=== PATIENT | male | born 1970 | race Caucasian/White ===

== ENCOUNTER 2017-08-01 00:23 | Emergency (ER) | payer SELFPAY ==
[2017-08-01] MEDS ORDERED: Ondansetron HCl/PF 4 MG/2 ML Vial ONE (00:49)
[2017-08-01 00:54] LABS: Hemoglobin 15.7 g/dL (14.0-18.0); Mean Corpuscular HGB CONC 34.3 g/dL (32.0-36.0); Mean Corpuscular Hemoglobin 30.7 pg (27.0-31.0); Mean Corpuscular Volume 89.7 fl (80.0-94.0); Mean Platelet Volume 8.8 fL (7.4-10.4); Platelet Count 225 thou/uL (130-400); RBC Distribution Width 11.5 % (11.5-14.5); Red Blood Cell (RBC) Count 5.11 mill/uL (4.70-6.10); White Blood Cell (WBC) Count 19.1 thou/uL (4.8-10.8)
[2017-08-01] MEDS ORDERED: Mag-Al 1200 mg/1200 mg/30 ML UDCUP ONE (01:14)
[2017-08-01] MEDS ORDERED: Lidocaine Viscous Sol 2% 15 ml UD Cup ONE (01:14)
[2017-08-01 01:16] LABS: Band 5 % (5-11); Lymphocytes 11 % (21-51); MDiff Complete? YES; Monocytes 4 % (0-10); Neutrophil 79 % (42-75); Reactive Lymphocytes 1 % (0-10)
[2017-08-01 01:24] LABS: ALT (SGPT) 19 U/L (8-55); AST (SGOT) 14 U/L (5-34); Albumin 4.2 g/dL (3.5-5.0); Alkaline Phosphatase 86 U/L (40-150); Anion Gap 18 mmol/L (10-20); BUN (Urea Nitrogen) 14 mg/dL (8.9-20.6); Bilirubin, Total 1.2 mg/dL (0.2-1.2); Calc. Creatinine Clearance 0 mL/min (70-130); Calcium 10.4 mg/dL (7.8-10.44); Carbon Dioxide 34 mmol/L (22-29); Chloride 89 mmol/L (98-107); Estimated GFR-MDRD 53; Globulin 3.3 g/dL (2.4-3.5); Glucose 258 mg/dL (70-105); Lipase 15 U/L (8-78); Protein, Total 7.5 g/dL (6.0-8.3); Sodium 138 mmol/L (136-145)
[2017-08-01 01:34] LABS: Potassium 2.6 mmol/L (3.5-5.1)
[2017-08-01] MEDS ORDERED: Potassium Chloride 20 MEQ TAB ONE (01:55)
[2017-08-01] MEDS ORDERED: Potassium Chloride 20 MEQ/100 ML PREMIX BAG ONE (01:56)
[2017-08-01] MEDS ORDERED: Magnesium Citrate 300 ML BOT ONE (03:48)
--- NOTE | 2017-08-01 08:13 | RAD ---
ABDOMEN 2 VIEWS: HISTORY: Abdominal pain and constipation. COMPARISON: None. FINDINGS: Projecting over the left lower abdomen is a bilobed calcification which was seen on the CT examinatio n of 03/18/17 likely related to bowel plus the calcified small bowel diverticulum. No dilated loops o f large or small bowel. On the upright view, there is no free air under the diaphragms. Five zva-seb-vooemqg-type vertebrae. IMPRESSION: No acute abnormality in the abdomen. POS: [facility]
== END 2017-08-01 03:50 | disposition home or self-care (01) ==
LOC: ERS 00:23
DX: E87.6 Hypokalemia (principal); K59.00 Constipation, unspecified; E11.9 Type 2 diabetes mellitus without complications; M10.9 Gout, unspecified; E78.5 Hyperlipidemia, unspecified; I10 Essential (primary) hypertension; E66.9 Obesity, unspecified; Z79.899 Other long term (current) drug therapy; Z79.84 Long term (current) use of oral hypoglycemic drugs
CPT/HCPCS: 36416; 74019; 80053; 83690; 85025; 96361; 96365; 96372; 96375; J2405; J3480

== ENCOUNTER 2017-11-21 09:35 | Inpatient (IN) | payer SELFPAY ==
[2017-11-21] MEDS ORDERED: diphenhydrAMINE 50 MG/ML VIAL ONE (11:02)
[2017-11-21] MEDS ORDERED: Metoclopramide HCl 10 MG/2 ML VIAL IVP SCH (11:15)
--- NOTE | 2017-11-21 11:20 | RAD ---
CHEST ONE VIEW: HISTORY: Altered mental status. COMPARISON: Chest, one view, 03/18/2017. FINDINGS: The lungs are clear. No pneumothorax or effusion. The cardiac silhouette and mediastinal contour is within normal limits. IMPRESSION: No acute intrathoracic abnormality. POS: [facility]
[2017-11-21 11:27] LABS: Bilirubin Negative (Negative); Blood, Urine Negative (Negative); Clarity CLEAR (Clear); Glucose, Urine (Dipstick) >=1000 mg/dL (Negative); Leukocyte Negative (Negative); Nitrite Negative (Negative); Protein, Urine (Dipstick) 30 mg/dL (Neg-Trace); Specific Gravity, Urine 1.028 (1.002-1.036); Urobilinogen 0.2 mg/dL (0.2-1.0)
[2017-11-21 11:35] LABS: #Basophils 0.1 thou/uL (0.0-0.2); #Lymphocytes 1.8 thou/uL (1.20-3.40); #Monocytes 0.7 thou/uL (0.11-0.59); #Neutrophils 12.8 thou/uL (1.40-6.50); %Basophils 0.3 % (0.0-1.0); %Eosinophils 0.2 % (0.0-10.0); %Lymphocytes 11.7 % (21.0-51.0); %Monocytes 4.7 % (0.0-10.0); %Neutrophils 83.1 % (42.0-75.0); Mean Corpuscular HGB CONC 34.7 g/dL (32.0-36.0); Mean Corpuscular Hemoglobin 30.7 pg (27.0-31.0); Mean Corpuscular Volume 88.6 fl (80.0-94.0); Mean Platelet Volume 8.9 fL (7.4-10.4); Platelet Count 259 thou/uL (130-400); RBC Distribution Width 11.8 % (11.5-14.5); White Blood Cell (WBC) Count 15.4 thou/uL (4.8-10.8)
[2017-11-21 11:36] LABS: Bacteria/HPF None Seen HPF (None Seen); Hyaline Casts/LPF 7-10 HYALINE CAST LPF (0-3 Hyaline); Pathc Cast-AUWi Flag 2.03 (0-2.49); RBC/HPF None Seen HPF (0-3); Squamous Epithelial None Seen HPF (0-3); WBC/HPF 0-3 HPF (0-3)
--- NOTE | 2017-11-21 11:47 | CT ---
NONCONTRAST CT HEAD: Date: 11-21-17 History: Altered mental status. Possible seizure. EMS reports the patient was postictal and confused on scene. Comparison: 02-14-16 FINDINGS: There is a stable low density area in the right thalamus as well as additional low density areas in t he left basal ganglia likely related to remote lacunar infarctions. Scattered low density areas withi n the periventricular white matter which are nonspecific but likely secondary to chronic small vessel ischemic changes. There is no evidence of an acute cortical infarction, hemorrhage, mass effect, or midline shift. Vent ricular system is normal in size, shape, and position. There has been no interval change when compare d to the prior exam. IMPRESSION: 1. No acute intracranial abnormality is demonstrated. 2. Remote lacunar infarctions right thalamus and posterior left basal ganglia. POS: [facility]
[2017-11-21 11:52] LABS: Amphetamine Not Detected (NotDetected); Barbiturates Screen Not Detected (NotDetected); Benzodiazepine Screen Not Detected (NotDetected); Cocaine Metabolite Screen Not Detected (NotDetected); Medtox Control Line Valid? VALID (VALID); Medtox Reader # READER 1; Methadone Not Detected (NotDetected); Methamphetamine Not Detected (NotDetected); Opiate Screen Not Detected (NotDetected); Oxycodone Screen Not Detected (NotDetected); Phencyclidine (PCP) Not Detected (NotDetected); THC/Cannabinoid Screen Not Detected (NotDetected); Tricyclic Screen Not Detected (NotDetected)
[2017-11-21 12:00] LABS: ALT (SGPT) 29 U/L (8-55); AST (SGOT) 16 U/L (5-34); Albumin 4.2 g/dL (3.5-5.0); Alkaline Phosphatase 79 U/L (40-150); Anion Gap 15 mmol/L (10-20); BUN (Urea Nitrogen) 15 mg/dL (8.9-20.6); Bilirubin, Total 0.8 mg/dL (0.2-1.2); Calc. Creatinine Clearance 0 mL/min (70-130); Calcium 9.7 mg/dL (7.8-10.44); Carbon Dioxide 24 mmol/L (22-29); Chloride 99 mmol/L (98-107); Estimated GFR-MDRD 58; Globulin 3.4 g/dL (2.4-3.5); Glucose 297 mg/dL (70-105); Potassium 3.4 mmol/L (3.5-5.1); Protein, Total 7.6 g/dL (6.0-8.3); Sodium 135 mmol/L (136-145)
[2017-11-21 12:01] LABS: CKMB 1.2 ng/mL (0-6.6); Troponin I 0.059 ng/mL (< 0.028)
[2017-11-21] MEDS ORDERED: Aspirin 325 MG TAB ONE (14:46)
[2017-11-21] MEDS ORDERED: Aspirin 81 mg Enteric Coated Tablet ONE (14:49)
[2017-11-21 15:00] LABS: Magnesium 2.3 mg/dL (1.6-2.6); Phosphorus 3.1 mg/dL (2.3-4.7)
[2017-11-21] MEDS ORDERED: levETIRAcetam In NaCl (Iso-Os) 1,000 MG in Premix Bag 1 BAG IVPB SCH (15:00)
[2017-11-21 15:59] LABS: Troponin I 0.063 ng/mL (< 0.028)
[2017-11-21] MEDS ORDERED: Acetaminophen 325 MG TAB PO PRN ×2 (16:18→19:23)
[2017-11-21] MEDS ORDERED: Ondansetron ODT 4 MG TAB SL PRN (16:18)
[2017-11-21] MEDS ORDERED: Ondansetron HCl/PF 4 MG/2 ML Vial IVP PRN ×2 (16:18→19:23)
[2017-11-21 16:27] VITALS: BMI 36.2
[2017-11-21] MEDS ORDERED: Dextrose 5% in Water 1,000 ML IV PRN (18:23)
[2017-11-21] MEDS ORDERED: Dextrose 50% Abboject 50 ML SYRINGE SLOW IVP PRN (18:23)
[2017-11-21 18:33] LABS: Troponin I 0.061 ng/mL (< 0.028)
[2017-11-21] MEDS ORDERED: Calcium Carbonate 500 MG ChewTAB PO PRN (19:23)
[2017-11-21] MEDS ORDERED: Milk Of Magnesia 30 ML UDCUP PO PRN (19:23)
[2017-11-21] MEDS ORDERED: Ondansetron ODT 4 MG TAB PO PRN (19:23)
[2017-11-21] MEDS ORDERED: Senokot 8.6 MG TAB PO PRN (19:23)
[2017-11-21] MEDS ORDERED: Nitroglycerin 0.4 MG TAB (25 Tab Bottle) PO PRN (19:23)
[2017-11-21] MEDS ORDERED: hydrALAZINE 20 MG/ML VIAL SLOW IVP PRN ×2 (19:23→19:28)
[2017-11-21] MEDS ORDERED: Lorazepam 2 MG/ML VIAL SLOW IVP PRN (19:26)
[2017-11-21] MEDS ORDERED: cloNIDine 0.1 MG TAB PO PRN (19:28)
[2017-11-21] MEDS ORDERED: Aspirin 81 mg Enteric Coated Tablet PO SCH (19:30)
--- NOTE | 2017-11-21 20:15 | HP ---
DATE OF ADMISSION: 11/21/2017 PRIMARY CARE PHYSICIAN: Rosanne Salguero. CHIEF COMPLAINT: Seizure. HISTORY OF PRESENT ILLNESS: Patient is a 47-year-old male with hypertension, diabetes mellitus type 2 and hypertension who was brought in by EMS with the above complaints. The patient was admitted at this facility in 01/2016 for seizure secondary to hypertensive encephalop athy. He was not started on any antiepileptic drugs. Recently, the patient discontinued all of his medications including insulin. This morning, the patie nt was found to have seizure around 7:30 a.m. witnessed by family. He was confused at least for an h our or so. His eyes rolled up and his head went back. There was no shaking reported. No tongue bit ing or urinary incontinence reported. At this time, patient's mentation has improved. He denies any headache, double vision, blurring of vision, facial asymmetry, weakness, numbness of any of his extr emities. No chest pain, palpitations, nausea, vomiting, diaphoresis reported. In the emergency room, initial vital signs showed temperature 97.7, respirations 18, pulse of 81 with a blood pressure of 150/102 with O2 saturation of 99% on room air. His CT scan of the brain showed remote lacunar infarctions in the right thalamus and posterior left basal ganglia. Chest x-ray was n egative. He received 1000 mg Keppra, aspirin, Reglan, IV fluids, and Benadryl in the Emergency Room. PAST MEDICAL HISTORY: 1. Hypertension 2. Hyperlipidemia. 3. Diabetes mellitus type 2. 4. Gout. 5. History of nephrolithiasis. 6. History of seizures secondary to hypertensive urgency in 2016. PAST SURGICAL HISTORY: Lithotripsy. ALLERGIES: No known drug allergies. CURRENT HOME MEDICATIONS: Patient has discontinued taking all of his medications. SOCIAL HISTORY: Patient currently lives at home with family. No alcohol, tobacco or drug use. He i s FULL code, makes his own decisions with the help of his family. FAMILY HISTORY: Father with diabetes, hypertension, hyperlipidemia, and atrial fibrillation. Mother with myasthenia gravis. REVIEW OF SYSTEMS: Somewhat limited due to patient's mentation. PHYSICAL EXAMINATION: VITAL SIGNS: As discussed above. GENERAL: A 47-year-old male in no apparent distress. Mentation slowly improving. HEENT: Head atraumatic, normocephalic. Sclerae are anicteric. Moist mucous membranes. No oral les ion. NECK: Supple, no JVD, no neck stiffness, no carotid bruit, no JVD elevation. LUNGS: Clear to auscultation bilaterally, no wheezing, rales or rhonchi. HEART: S1, S2 present. Regular rate and rhythm. No murmurs, rubs or gallops appreciated. ABDOMEN: Soft, nontender, bowel sounds present. EXTREMITIES: No edema or calf tenderness. NEUROLOGIC: Cranial nerves II-XII were normal on examination. Power was 5/5 in all extremities. Fi [id number] and utmh-fd-[id number] test was normal. Reflexes were equivocal. Sensation to touch was norm al bilaterally. PSYCHIATRY: The patient is alert, awake, oriented x3. Somnolent. SKIN: Warm and dry. LYMPH NODES: No palpable lymph nodes in the neck. PERIPHERAL VASCULAR: Radial pulses palpable bilaterally. MUSCULOSKELETAL: No joint swelling or tenderness. LABORATORY FINDINGS: CBC showed WBC 15.4 with neutrophil of 83.1. Chemistry showed sodium 135, pota ssium 3.4, chloride 99, bicarbonate 24, BUN 15, creatinine 1.31, glucose of 297. Troponin 0.059. Re peat troponin 0.063. TSH was 0.68. Prolactin level was 3.16. Telemetry monitoring by my review showed sinus rhythm. CT scan of the brain and chest x-ray by my re view as discussed above. IMPRESSION: 1. Seizure, probably secondary to hypertensive urgency. Patient also had hyperglycemia. 2. History of seizures secondary to hypertensive urgency in 2016. 3. Leukocytosis, unlikely to be infectious. Chest x-ray was negative. Urinalysis was negative for WBC or bacteria. 4. Uncontrolled diabetes mellitus type 2. Please note that patient has discontinued taking all of h is medications including insulin. 5. Acute kidney injury on chronic kidney disease stage 2. 6. Indeterminate troponins. Please note that his troponins are chronically elevated. The etiology appears to be hypertensive urgency. 7. Hyponatremia. 8. Hypokalemia. 9. History of gout. 10. Nephrolithiasis. 11. Obesity with a BMI 36.2. PLAN: 1. The patient will be monitored in the stroke unit. We will continue frequent neuro checks. Loraz epam as needed for seizures. Patient received a dose of Keppra. Neurology will be consulted. We wi ll continue IV fluids. Replace electrolytes, repeat labs in a.m. We will check folic acid and vitam in B12. Patient had an echocardiogram last year that showed normal left ventricular ejection fractio n. We will consult walking program. 2. Deep venous thrombosis prophylaxis. 3. We will consider MRI of the brain and EEG after discussing with Neurology. Plan of care was discussed with the patient in detail. He stated understanding. Patient was advised to be compliant with all of his medications. Insulin sliding scale will be started. We will also a dd a low dose Levemir.
[2017-11-21] MEDS ORDERED: Insulin Detemir 100 UNITS/ML 10 UNITS in Pre-Filled Syringe SC SCH (21:00)
[2017-11-21] MEDS: Insulin Regular 300 UNITS/3 ML VIAL SC PRN (21:36)
--- NOTE | 2017-11-21 23:28 | CON ---
DATE OF CONSULTATION: 11/21/2017 REFERRING PHYSICIAN: Dr. Dwayne Montgomery. REASON FOR CONSULTATION: New onset seizure. HISTORY OF PRESENT ILLNESS: Mr. Lindsay is a pleasant 47-year-old male who has been radha rned for evaluation of new-onset seizure. History is obtained from the patient's girlfriend who was present at bedside. Girlfriend reports that patient has been having fluctuations in his blood pressu re and diabetes over the past few days. He had discontinued all his medications as he thought as his blood pressure and diabetes were better and came to find out that there were not properly controlled , thus he was restarted back on diabetic medications on Saturday. He has been having nausea, vomiting of systemic over the past couple of days. This morning, he woke up, was in normal state of health. He had sudden onset of passing out. Girlfriend was with him at that time who noted that he became st iff on his upper and lower extremities. His head turned towards the left side. His eyes were flutte ring and he was frothing at the mouth. He was unresponsive to any stimuli, which prompted her to [facility] EMS. This lasted for approximately 3-5 minutes. He was drowsy and confused after the episode. Wh en EMS got there, he was still postictal and his blood sugar that was measured by EMS, was noted to b e at around 250. His blood pressure was 150 systolic. He was brought to the [facility]. On the way here, he had another episode of seizure that was witnessed by EMS. He has no recolle ction of the events that took place. He states that the next last thing he remembers was waking up w [facility] in his bedroom. Patient also reports that he had a seizure about 2 years ago that was due to poorly controlled diabetes. His blood sugar was 800 at that time, he was not started on any seizure medication at that time. PAST MEDICAL HISTORY: Significant for hypertension and diabetes. PAST SURGICAL HISTORY: Significant for surgery for kidney stones. SOCIAL HISTORY: He drinks socially. He denies smoking, alcohol, or illicit drug use. He is current ly working. CURRENT MEDICATIONS: Please review MAR. ALLERGIES: No known drug allergies. FAMILY HISTORY: Noncontributory. REVIEW OF SYSTEMS: As mentioned in the HPI, otherwise negative. PHYSICAL EXAMINATION: VITAL SIGNS: Blood pressure 134/78, pulse of 72, temperature of 98.3, respirations of 15, O2 sats ar e 98% on room air. GENERAL: Well-developed, well-nourished male in no apparent distress. RESPIRATORY: Clear to auscultation bilaterally. CARDIOVASCULAR: Regular rate and rhythm. NEUROLOGIC: Mental status: The patient is awake, alert, oriented x3. Speech and language: Fluent speech. Cranial nerves: Pupils are 3 mm and reactive. Visual todd are intact. The extraocular m uscles are intact. No nystagmus is noted. No ptosis noted. Face is symmetric. Tongue and uvula mi dline. Motor exam showed normal tone and bulk with 5/5 strength in both upper and lower extremities. Sensory: Sensation is intact and symmetric. Deep tendon reflexes, 2+ reflexes in both upper and l ower extremities. Babinski: Plantar responses flexion bilaterally. Coordination intact to finger-n ose-finger tapping bilaterally. Gait and Romberg not tested. LABORATORY DATA: Reviewed, which included CBC, CMP, TSH, prolactin, troponin, CK-MB, urinalysis, uri ne drug screen, which are significant for WBC of 15.4, sodium 135, potassium of 3.4, creatinine 1.31, glucose of 297. Troponin of 0.063, otherwise unremarkable. IMAGING STUDIES: CT head without contrast was reviewed which showed no acute intracranial abnormalit y. 1. Generalized tonic-clonic seizure. 2. Hypertension. 3. Diabetes. ASSESSMENT AND PLAN: Ms. Lindsay is a pleasant 47-year-old male who presented with the ep isode of seizure. This may have been precipitated by a poorly controlled blood glucose level. Given that this is his second episode, I would recommend starting him on Keppra 500 mg b.i.d. I will also recommend obtaining MRI brain without contrast and EEG. I have advised patient that if his MRI is n ormal, he may be okay to be discharged to home. I will follow up his EEG results as an outpatient an d at that time, I will discuss the results. He will need to continue on Keppra for at least 1 year. I have advised him on seizure precautions including no driving, no climbing on ladders and no operat ing heavy machinery. He will follow up in my clinic in 4 weeks. Thank you for consultation.
[2017-11-22] MEDS: NS 0.9% w/ 20 MEQ KCL 1,000 ML/1,000 ML BAG IV SCH ×4 (01:43→21:42)
[2017-11-22 05:48] LABS: #Basophils 0.1 thou/uL (0.0-0.2); #Eosinphils 0.1 thou/uL (0.0-0.7); #Lymphocytes 2.9 thou/uL (1.20-3.40); #Monocytes 0.9 thou/uL (0.11-0.59); #Neutrophils 5.3 thou/uL (1.40-6.50); %Basophils 0.9 % (0.0-1.0); %Eosinophils 1.3 % (0.0-10.0); %Lymphocytes 31.1 % (21.0-51.0); %Monocytes 9.3 % (0.0-10.0); %Neutrophils 57.3 % (42.0-75.0); Hemoglobin 15.1 g/dL (14.0-18.0); Mean Corpuscular HGB CONC 33.1 g/dL (32.0-36.0); Mean Corpuscular Hemoglobin 30.1 pg (27.0-31.0); Mean Corpuscular Volume 91.1 fl (80.0-94.0); Mean Platelet Volume 8.9 fL (7.4-10.4); Platelet Count 238 thou/uL (130-400); Red Blood Cell (RBC) Count 5.01 mill/uL (4.70-6.10); White Blood Cell (WBC) Count 9.2 thou/uL (4.8-10.8)
[2017-11-22 05:52] LABS: Albumin 3.7 g/dL (3.5-5.0); Anion Gap 15 mmol/L (10-20); BUN (Urea Nitrogen) 9 mg/dL (8.9-20.6); BUN/Creatinine Ratio 8.74; Calc. Creatinine Clearance 134 mL/min (70-130); Calcium 8.9 mg/dL (7.8-10.44); Carbon Dioxide 25 mmol/L (22-29); Chloride 105 mmol/L (98-107); Estimated GFR-MDRD 77; Glucose 186 mg/dL (70-105); Phosphorus 3.3 mg/dL (2.3-4.7); Potassium 3.5 mmol/L (3.5-5.1); Sodium 141 mmol/L (136-145)
[2017-11-22 06:24] LABS: Folate (Folic Acid) 7.7 ng/mL (7.0-31.4)
[2017-11-22] MEDS: Insulin Regular 300 UNITS/3 ML VIAL SC PRN ×3 (06:45→21:37)
[2017-11-22] MEDS ORDERED: Insulin Detemir 100 UNITS/ML 10 UNITS in Pre-Filled Syringe 1 EACH SC SCH (09:00)
[2017-11-22] MEDS ORDERED: Aspirin 325 MG TAB PO SCH (09:00)
[2017-11-22] MEDS: Carvedilol 25 MG TAB PO SCH ×2 (09:16→16:29)
[2017-11-22] MEDS: Aspirin 81 mg Enteric Coated Tablet PO SCH (09:16)
[2017-11-22] MEDS: Multivit, Therapeutic 1 TAB PO SCH (09:17)
--- NOTE | 2017-11-22 10:56 | MRI ---
BRAIN MRI WITHOUT CONTRAST: HISTORY: Seizure. COMPARISON: None. TECHNIQUE: Brain MRI is performed without intravenous Gadolinium administration. Multisequential, multiplanar i maging is performed. FINDINGS: No hemorrhage on the axial gradient echo sequence. Calvarium has a normal T1 marrow signal intensity. Midline brain parenchymal structures are unremark able. Coronal gradient echo and coronal T1 weighted sequence images demonstrate symmetric signal intensity of the hippocampi. Central arterial flow voids are maintained. Absent restricted diffusion. T2 and FLAIR white matter hyperintensities due to chronic small-vessel ischemic change. No parenchymal mass, mass effect, or midline shift. Brain volume, age appropriate. No evidence of hydrocephalus. Remote lacunar infarcts involving the left and right thalamus. IMPRESSION: 1. No MR evidence of medial temporal sclerosis. 2. Chronic small-vessel ischemic change of white matter. 3. Age-appropriate brain volume. POS: [facility]
--- NOTE | 2017-11-22 17:37 | PDOC.PN ---
- Subjective Encounter Start Date: 11/22/17 Encounter Start Time: 11:00 Patient seen and examined. No new complaints. No overnight events. No new seizure. No new focal findings - Objective Resuscitation Status: Resuscitation Status FULL:Full Resuscitation MAR Reviewed: Yes Vital Signs & Weight: Vital Signs (12 hours) Temp Pulse Resp BP Pulse Ox 11/22/17 15:00 97.9 F 77 18 140/80 95 11/22/17 11:00 97.8 F 62 18 145/87 H 100 11/22/17 08:00 97.8 F 62 18 98 11/22/17 07:59 97.8 F 69 18 140/87 98 Weight Weight 238 lb 6.4 oz Result Diagrams: 11/22/17 04:55 11/22/17 04:55 Additional Labs: Accuchecks 11/22/17 11/22/17 11/22/17 16:05 10:56 05:41 POC Glucose 302 H 210 H 181 H 11/21/17 20:53 POC Glucose 387 H Radiology Reviewed by me: Yes (MRI - no CVA) EKG Reviewed by me: Yes (Tele SR) Phys Exam - Physical Examination Constitutional: NAD Neck: no nodes, no JVD Respiratory: no wheezing, no rales, no rhonchi, clear to auscultation bilateral Cardiovascular: RRR, no rub no heaves/pulsations Gastrointestinal: soft, non-tender, no distention, positive bowel sounds Musculoskeletal: no edema Neurological: non-focal, normal sensation, moves all 4 limbs Psychiatric: normal affect, A&O x 3 Skin: no rash Dx/Plan - Plan DVT proph w/SCDs IMPRESSION: 1. Seizure, probably secondary to hypertensive urgency and uncontrolled DM2 2. History of seizures secondary to hypertensive urgency in 2016. 3. Leukocytosis, unlikely to be infectious. 4. Uncontrolled diabetes mellitus type 2. 5. Acute kidney injury on chronic kidney disease stage 2. 6. Chronically elevated troponins in indeterminate range 7. Hyponatremia. 8. Hypokalemia. 9. History of gout. 10. Nephrolithiasis. 11. Obesity with a BMI 36.2. PLAN: * Await EEG * Neuro input appreciated * Increase Levemir to 15 units BID * A1c 13 * Consult core measures abstractor * Change IVF rate to 75 * DC planning * Cont Coreg Review of Systems - Review of Systems Respiratory: negative: Cough, Dry, Shortness of Breath, Hemoptysis, SOB with Excertion, Pleuritic Pain, Sputum, Wheezing Cardiovascular: negative: chest pain, palpitations, orthopnea, paroxysmal nocturnal dyspnea, edema, light headedness, other Gastrointestinal: negative: Nausea, Vomiting, Abdominal Pain, Diarrhea, Constipation, Melena, Hematochezia, Other Neurological: negative: Weakness, Numbness, Incoordination, Change in Speech, Confusion, Seizures, Other - Medications/Allergies Allergies/Adverse Reactions: Allergies Allergy/AdvReac Type Severity Reaction Status Date / Time No Known Drug Allergies Allergy Verified 02/14/16 08:48 Medications: Current Medications Acetaminophen (Tylenol) 650 mg PO Q4H PRN PRN Reason: Headache/Fever or Pain Aspirin (Ecotrin) 81 mg PO DAILY REPLACED BY [facility] Last Admin: 11/22/17 09:16 Dose: 81 mg Calcium Carbonate (Tums) 1,000 mg PO Q4H PRN PRN Reason: Heartburn or Indigestion Carvedilol (Coreg) 12.5 mg PO BID-[facility] Last Admin: 11/22/17 16:29 Dose: 12.5 mg Clonidine (Catapres) 0.1 mg PO Q4H PRN PRN Reason: Systolic BP > 180 Dextrose/Water (Dextrose 50%) 25 gm SLOW IVP PRN PRN PRN Reason: Hypoglycemia Glucagon (Glucagon) 1 mg IM PRN PRN PRN Reason: Hypoglycemia Hydralazine HCl (Apresoline) 10 mg SLOW IVP Q4H PRN PRN Reason: SBP Greater Than 180 Dextrose/Water (D5w) 1,000 mls @ 0 mls/hr IV .Q0M PRN; As Directed PRN Reason: Hypoglycemia Potassium Chloride/Sodium Chloride (Ns 0.9% W/ 20 Meq Kcl) 1,000 ml in 1,000 mls @ 75 mls/hr IV .[id number] REPLACED BY [facility] Insulin Detemir 15 units/ (Miscellaneous Medication) 0.15 mls @ 0 mls/hr SC BID REPLACED BY [facility] Insulin Human Regular (Humulin R) 0 units SC .MODERATE SLIDING SC PRN PRN Reason: Moderate Correctional Scale Last Admin: 11/22/17 16:30 Dose: 8 unit Insulin Human Regular (Humulin R) 0 units SC .BEDTIME SLIDING SC PRN PRN Reason: Bedtime Correctional Scale Last Admin: 11/21/17 21:36 Dose: 5 unit Lorazepam (Ativan) 1 mg SLOW IVP Q15MIN PRN PRN Reason: Seizures Magnesium Hydroxide (Milk Of Magnesium) 30 ml PO DAILYPRN PRN PRN Reason: Constipation Multivitamins (Theragran) 1 tab PO DAILY [facility] Last Admin: 11/22/17 09:17 Dose: 1 tab Nitroglycerin (Nitrostat) 0.4 mg PO Q5MIN PRN PRN Reason: Chest Pain Ondansetron HCl (Zofran Odt) 4 mg PO Q6H PRN PRN Reason: Nausea/Vomiting Ondansetron HCl (Zofran) 4 mg IVP Q6H PRN PRN Reason: Nausea/Vomiting Senna (Senokot) 2 tab PO HSPRN PRN PRN Reason: Constipation
[2017-11-22] MEDS: Insulin Detemir 100 UNITS/ML 15 UNITS in Pre-Filled Syringe SC SCH (21:38)
[2017-11-23] MEDS: Insulin Regular 300 UNITS/3 ML VIAL SC PRN ×2 (06:31→12:00)
[2017-11-23] MEDS: Multivit, Therapeutic 1 TAB PO SCH (08:13)
[2017-11-23] MEDS: Carvedilol 25 MG TAB PO SCH (08:13)
[2017-11-23] MEDS: Aspirin 81 mg Enteric Coated Tablet PO SCH (08:13)
[2017-11-23] MEDS: Insulin Detemir 100 UNITS/ML 15 UNITS in Pre-Filled Syringe SC SCH (08:13)
[2017-11-23] MEDS ORDERED: Artificial Tear Sol 15 ML BOT EA EYE PRN (08:25)
[2017-11-23] MEDS ORDERED: Sodium Chloride 0.65% Nasal 44 ML BOT EA NARE PRN (08:25)
[2017-11-23] MEDS ORDERED: Loperamide HCl 2 MG CAP PO PRN (08:25)
[2017-11-23] MEDS ORDERED: Temazepam 15 MG CAP PO PRN (08:25)
[2017-11-23] MEDS ORDERED: Diabetic Tussin 200 MG/10 ML UDCUP PO PRN (08:25)
[2017-11-23] MEDS ORDERED: Mag-Al 1200 mg/1200 mg/30 ML UDCUP PO PRN (08:25)
[2017-11-23] MEDS ORDERED: Chloraseptic Spray 180 ml Bottle PO PRN (08:25)
[2017-11-23] MEDS ORDERED: HYDROcodone/Acetaminophen 5/325 mg Tablet PO PRN (08:25)
[2017-11-23] MEDS ORDERED: Eucerin (Mineral Oil/Petrolatum,White) 30 gm Jar TOP PRN (08:25)
[2017-11-23] MEDS ORDERED: Loratadine 10 MG TAB PO PRN (08:25)
[2017-11-23] MEDS ORDERED: Famotidine 20 MG TAB PO SCH (09:00)
--- NOTE | 2017-11-23 10:47 | PDOC.PN ---
- Subjective Encounter Start Date: 11/23/17 Encounter Start Time: 07:00 -: old records requested/rev Patient seen and examined. No new complaints. No overnight events - Objective Resuscitation Status: Resuscitation Status FULL:Full Resuscitation MAR Reviewed: Yes Vital Signs & Weight: Vital Signs (12 hours) Temp Pulse Resp BP BP BP BP 11/23/17 07:20 98.2 F 72 20 154/93 H 11/23/17 05:00 77 152/101 H 165/106 H 156/104 H 11/23/17 03:59 98.4 F 68 16 142/82 H 11/23/17 00:00 97.8 F 60 16 114/69 Pulse Ox 11/23/17 07:20 96 11/23/17 05:00 11/23/17 03:59 98 11/23/17 00:00 96 Weight Weight 238 lb 6.4 oz I&O: 11/22/17 11/23/17 11/24/17 06:59 06:59 06:59 Intake Total 1300 Balance 1300 Result Diagrams: 11/22/17 04:55 11/22/17 04:55 Additional Labs: Accuchecks 11/23/17 11/22/17 11/22/17 05:53 20:50 16:05 POC Glucose 258 H 257 H 302 H 11/22/17 10:56 POC Glucose 210 H Radiology Reviewed by me: Yes (mri) EKG Reviewed by me: Yes (nsr) Phys Exam - Physical Examination Constitutional: NAD HEENT: PERRLA, moist MMs, sclera anicteric Neck: no JVD, supple Respiratory: no wheezing, no rales, no rhonchi Cardiovascular: RRR, no significant murmur, no rub Gastrointestinal: soft, non-tender, no distention, positive bowel sounds Musculoskeletal: no edema, pulses present Neurological: non-focal, normal sensation, moves all 4 limbs Lymphatic: no nodes Psychiatric: normal affect, A&O x 3 Skin: no rash, normal turgor Dx/Plan (1) Demand ischemia Code(s): I24.8 - OTHER FORMS OF ACUTE ISCHEMIC HEART DISEASE Status: Acute (2) Hypertensive urgency Code(s): I16.0 - HYPERTENSIVE URGENCY Status: Acute (3) Seizure Code(s): R56.9 - UNSPECIFIED CONVULSIONS Status: Acute (4) DM2 (diabetes mellitus, type 2) Status: Chronic (5) Gout Code(s): M10.9 - GOUT, UNSPECIFIED Status: Chronic (6) Nephrolithiasis Status: Chronic (7) Obesity (BMI 30-39.9) Code(s): E66.9 - OBESITY, UNSPECIFIED Status: Chronic (8) Hypokalemia Code(s): E87.6 - HYPOKALEMIA Status: Resolved - Plan cont current plan of care, plan discussed w/ family * medication reviewed as below * symptomatic treatment * stable for discharge * see discharge alonso. Review of Systems - Review of Systems Eyes: negative: Pain, Vision Change, Conjunctivae Inflammation, Eyelid Inflammation, Redness, Other ENT: negative: Ear Pain, Ear Discharge, Nose Pain, Nose Discharge, Nose Congestion, Mouth Pain, Mouth Swelling, Throat Pain, Throat Swelling, Other Respiratory: negative: Cough, Dry, Shortness of Breath, Hemoptysis, SOB with Excertion, Pleuritic Pain, Sputum, Wheezing Cardiovascular: negative: chest pain, palpitations, orthopnea, paroxysmal nocturnal dyspnea, edema, light headedness, other Gastrointestinal: negative: Nausea, Vomiting, Abdominal Pain, Diarrhea, Constipation, Melena, Hematochezia, Other Genitourinary: negative: Dysuria, Frequency, Incontinence, Hematuria, Retention , Other Musculoskeletal: negative: Neck Pain, Shoulder Pain, Arm Pain, Back Pain, Hand Pain, Leg Pain, Foot Pain, Other Skin: negative: Rash, Lesions, Elder, Bruising, Other - Medications/Allergies Allergies/Adverse Reactions: Allergies Allergy/AdvReac Type Severity Reaction Status Date / Time No Known Drug Allergies Allergy Verified 02/14/16 08:48 Medications: Current Medications Acetaminophen (Tylenol) 650 mg PO Q4H PRN PRN Reason: Headache/Fever or Pain Hydrocodone Bitart/Acetaminophen ([place] 5/325) 1 tab PO Q4H PRN PRN Reason: Moderate Pain (4-6) Al Hydroxide/Mg Hydroxide (Maalox) 15 ml PO Q4H PRN PRN Reason: Heartburn or Indigestion Artificial Tears (Tears Renewed 15ml Bottle) 0 drop EA EYE PRN PRN PRN Reason: Dry Eyes Aspirin (Ecotrin) 81 mg PO DAILY [facility] Last Admin: 11/23/17 08:13 Dose: 81 mg Calcium Carbonate (Tums) 1,000 mg PO Q4H PRN PRN Reason: Heartburn or Indigestion Carvedilol (Coreg) 12.5 mg PO BID-[facility] Last Admin: 11/23/17 08:13 Dose: 12.5 mg Clonidine (Catapres) 0.1 mg PO Q4H PRN PRN Reason: Systolic BP > 180 Dextrose/Water (Dextrose 50%) 25 gm SLOW IVP PRN PRN PRN Reason: Hypoglycemia Famotidine (Pepcid) 20 mg PO BID [facility] Last Admin: 11/23/17 09:12 Dose: Not Given Glucagon (Glucagon) 1 mg IM PRN PRN PRN Reason: Hypoglycemia Guaifenesin (Robitussin Sf) 200 mg PO Q4H PRN PRN Reason: Cough Hydralazine HCl (Apresoline) 10 mg SLOW IVP Q4H PRN PRN Reason: SBP Greater Than 180 Dextrose/Water (D5w) 1,000 mls @ 0 mls/hr IV .Q0M PRN; As Directed PRN Reason: Hypoglycemia Potassium Chloride/Sodium Chloride (Ns 0.9% W/ 20 Meq Kcl) 1,000 ml in 1,000 mls @ 75 mls/hr IV .[id number] [facility] Last Admin: 11/22/17 21:42 Dose: 1,000 mls Insulin Detemir 15 units/ (Miscellaneous Medication) 0.15 mls @ 0 mls/hr SC BID [facility] Last Admin: 11/23/17 08:13 Dose: 0.15 mls Insulin Human Regular (Humulin R) 0 units SC .MODERATE SLIDING SC PRN PRN Reason: Moderate Correctional Scale Last Admin: 11/23/17 06:31 Dose: 6 unit Insulin Human Regular (Humulin R) 0 units SC .BEDTIME SLIDING SC PRN PRN Reason: Bedtime Correctional Scale Last Admin: 11/22/17 21:37 Dose: 3 unit Loperamide HCl (Imodium) 2 mg PO PRN PRN PRN Reason: Diarrhea/Loose Stools Loratadine (Claritin) 10 mg PO DAILYPRN PRN PRN Reason: Sinus Symptoms Lorazepam (Ativan) 1 mg SLOW IVP Q15MIN PRN PRN Reason: Seizures Magnesium Hydroxide (Milk Of Magnesium) 30 ml PO DAILYPRN PRN PRN Reason: Constipation Mineral Oil/White Petrolatum (Eucerin Cream) 0 gm TOP BIDPRN PRN PRN Reason: Dry Skin Multivitamins (Theragran) 1 tab PO DAILY EST[facility]AN Last Admin: 11/23/17 08:13 Dose: 1 tab Nitroglycerin (Nitrostat) 0.4 mg PO Q5MIN PRN PRN Reason: Chest Pain Ondansetron HCl (Zofran Odt) 4 mg PO Q6H PRN PRN Reason: Nausea/Vomiting Ondansetron HCl (Zofran) 4 mg IVP Q6H PRN PRN Reason: Nausea/Vomiting Phenol (Chloraseptic [place] 180 Ml Bot) 0 ml PO PRN PRN PRN Reason: Sore Throat Senna (Senokot) 2 tab PO HSPRN PRN PRN Reason: Constipation Sodium Chloride ([place]wards Nasal [place] 0.65%) 0 ml EA NARE QIDPRN PRN PRN Reason: Nasal Congestion Temazepam (Restoril) 15 mg PO HSPRN PRN PRN Reason: Insomnia
[2017-11-23] MEDS: NS 0.9% w/ 20 MEQ KCL 1,000 ML/1,000 ML BAG IV SCH ×2 (11:16→11:18)
[2017-11-23 12:06] VITALS: BP 161/96; TEMP 98.3
--- NOTE | 2017-11-23 12:49 | DIS ---
DATE OF ADMISSION: 11/21/2017 DATE OF DISCHARGE: 11/23/2017 PRIMARY CARE PHYSICIAN: Rosanne Salguero NP. DISCHARGE DISPOSITION: Home. PRIMARY DISCHARGE DIAGNOSES: Hypertensive urgency, seizure, demand ischemia, medication noncomplianc e, hypokalemia, corrected. SECONDARY DISCHARGE DIAGNOSES: Diabetes type 2, history of single seizure in the past, gout, nephrol ithiasis, obesity with BMI 36, hypertension. PRIMARY PROCEDURE AND OPERATION: None. RADIOLOGICAL INVESTIGATION: Chest x-ray normal. CT brain negative for any acute intracranial proces s. MRI brain was negative for any acute intracranial process. SIGNIFICANT LABORATORY DATA: WBC 9.2, hemoglobin 15.1, platelet 238. Sodium 141, potassium 3.5, BUN 9, creatinine 1.03, glucose 186, calcium 8.9, troponin 0.061. Prolactin 3.16. Hemoglobin A1c 13.0. Urinalysis unremarkable. Urine drug screen negative. Urine culture negative. DISCHARGE MEDICATIONS: New medication, Keppra 500 mg p.o. b.i.d., allopurinol 300 mg p.o. daily, Nor vasc 10 mg p.o. daily, aspirin 81 mg p.o. daily, Lipitor 40 mg p.o. at bedtime, Coreg 25 mg p.o. b.i. d., Amaryl 2 mg p.o. daily, Levemir insulin 15 units subcu b.i.d., lisinopril 40 mg p.o. daily, metfo rmin 500 mg p.o. b.i.d. CONTRAINDICATIONS: None. CODE STATUS: FULL CODE. INPATIENT CONSULTANTS: Dr. Laura More was consulted while in hospital. TEST RESULTS PENDING ON DISCHARGE: None. DISCHARGE PLAN: Post hospital, the patient is instructed not to drive until cleared by Neurology. P atient will follow up with Dr. Laura More as instructed and primary care physician as instructed. HOSPITAL COURSE: A 47-year-old male who has above-mentioned medical problem and he stopped taking me dication for several weeks. He was brought to emergency room for generalized tonic clonic seizure. The patient was admitted by Dr. Montgomery. Please see his H&P for further detail. In the emergency room , CT brain was normal. Chest x-ray was normal. He was having hypertensive urgency as well as his di abetes was not well controlled. During this hospital course, we started Levemir insulin and we also restarted his home medication, which he stopped taking for 2-3 weeks. During this admission, I had counseling for medication compliance. Neurology saw this patient and xavi kaplan recommended to start Keppra 500 mg p.o. b.i.d. given second seizure. 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 [facility] as an outpatient basis. While in hospital, we did an EEG, official report of EEG is pend ing. The patient is seen and examined at bedside today. All new medication prescription given to his phar jarrell. Plan of care discussed with the patient and family member at bedside.
--- NOTE | 2017-11-25 15:34 | EEG ---
Referring Physician: DR. TRESA SANCHEZ EEG # [id number] TEST TYPE: ROUTINE PORTABLE INPATIENT ELECTROENCEPHALOGRAM REASON FOR EEG: TONIC-CLONIC SEIZURE DATE OF EEG BEING DONE: 11/22/17 EEG DESCRIPTION: This is a 21 channel EEG recording. Electrodes are placed using the international ten-twenty electrode placement system. The background rhythm is predominately 8 hertz, medium voltage alpha rhythm. There is also abundant 14-20 hertz, low amplitude beta rhythm. PHOTIC STIMULATION: Showed no effect. HYPERVENTILATION: Showed no effect. There are no epileptiform discharges, sharp transients or asymmetry noted. EKG LEAD: Shows 66 beats per minute, regular rhythm. IMPRESSION: THIS IS A NORMAL EEG. THERE ARE NO EPILEPTIFORM DISCHARGES, SHARP TRANSIENTS OR ASYMMETRY NOTED. Senior Medical Transcriptionist: DAMION Drop Man: [email or web address]
== END 2017-11-23 12:31 | disposition home or self-care (01) | DRG 305 ==
LOC: ERS 09:35 → 2SE 15:08
PROVIDERS: ADMIT Internal Medicine; ATTEND Internal Medicine
DX: I16.0 Hypertensive urgency (principal); N17.9 Acute kidney failure, unspecified; E11.22 Type 2 diabetes mellitus with diabetic chronic kidney disease; E11.65 Type 2 diabetes mellitus with hyperglycemia; I24.8 Other forms of acute ischemic heart disease; E87.1 Hypo-osmolality and hyponatremia; M10.9 Gout, unspecified; E87.6 Hypokalemia; E66.9 Obesity, unspecified; Z68.36 Body mass index [BMI] 36.0-36.9, adult; N20.0 Calculus of kidney; Z91.14 Patient's other noncompliance with medication regimen; Z79.84 Long term (current) use of oral hypoglycemic drugs; Z79.82 Long term (current) use of aspirin; N18.2 Chronic kidney disease, stage 2 (mild); I12.9 Hypertensive chronic kidney disease with stage 1 through stage 4 chronic kidney disease, or unspecified chronic kidney disease; G40.309 Generalized idiopathic epilepsy and epileptic syndromes, not intractable, without status epilepticus; Z23 Encounter for immunization; D72.829 Elevated white blood cell count, unspecified
CPT/HCPCS: 36415; 36416; 70450; 70551; 71045; 80053; 80069; 80306; 81003; 81015; 82553; 82607; 82746; 83036; 83735; 84100; 84146; 84443; 84484; 85025; 87086; 90471; 90732; 93005; 94760; 95816; 95819; 96361; 96374; 96375; G0009; J1200; J1815; J1953; J2765

== ENCOUNTER 2018-11-14 20:06 | Emergency (ER) | payer SELFPAY ==
[2018-11-14] MEDS ORDERED: HYDROcodone/Acetaminophen 5/325 mg Tablet ONE (20:51)
--- NOTE | 2018-11-14 21:48 | ULT ---
RIGHT LOWER EXTREMITY VENOUS DOPPLER ULTRASOUND EVALUATION: 11/14/18 HISTORY: Right lower extremity knee pain. Multiple longitudinal and transverse images of the right lower extremity venous system is obtained us ing a multihertz linear array transducer. Real time, color flow, and spectral waveform Doppler analys is demonstrates no evidence of acute or old clots seen in the right common femoral, superficial femo ral, femoral profunda, popliteal vein, and posterior tibial veins. The right greater saphenous vein i s also patent. Incidentally noted right sided joint effusion is seen. IMPRESSION: No evidence of right lower extremity deep venous thrombosis. POS: SARAH
== END 2018-11-14 22:30 | disposition home or self-care (01) ==
LOC: ERS 20:06
DX: M25.561 Pain in right knee (principal); M10.9 Gout, unspecified; E11.9 Type 2 diabetes mellitus without complications; E66.9 Obesity, unspecified; E78.5 Hyperlipidemia, unspecified; I10 Essential (primary) hypertension; I25.2 Old myocardial infarction; Z98.61 Coronary angioplasty status; Z79.899 Other long term (current) drug therapy; Z79.82 Long term (current) use of aspirin; Z79.4 Long term (current) use of insulin

== ENCOUNTER 2019-02-07 15:33 | Observation (INO) | payer SELFPAY ==
[2019-02-07 16:14] LABS: #Basophils 0.1 thou/uL (0.0-0.2); #Eosinphils 0.1 thou/uL (0.0-0.7); #Lymphocytes 1.9 thou/uL (1.20-3.40); #Monocytes 0.8 thou/uL (0.11-0.59); #Neutrophils 10.7 thou/uL (1.40-6.50); %Basophils 0.4 % (0.0-1.0); %Eosinophils 0.4 % (0.0-10.0); %Lymphocytes 14.1 % (21.0-51.0); %Monocytes 5.7 % (0.0-10.0); %Neutrophils 79.3 % (42.0-75.0); Hemoglobin 14.3 g/dL (14.0-18.0); Mean Corpuscular HGB CONC 33.2 g/dL (32.0-36.0); Mean Corpuscular Hemoglobin 29.8 pg (27.0-31.0); Mean Corpuscular Volume 89.8 fL (78.0-98.0); Mean Platelet Volume 9.3 fL (7.4-10.4); Platelet Count 293 thou/uL (130-400); RBC Distribution Width 11.8 % (11.5-14.5); Red Blood Cell (RBC) Count 4.79 mill/uL (4.70-6.10); White Blood Cell (WBC) Count 13.5 thou/uL (4.8-10.8)
--- NOTE | 2019-02-07 16:23 | RAD ---
Exam: Chest one view HISTORY:Altered mental status Comparison: 11/21/2017 FINDINGS: Lungs: No masses or consolidation. Cardiac silhouette:Stable, prominent in size Pulmonary vessels: Mild prominence Pleural Spaces: Clear Pneumothorax: None Osseous abnormalities: None of acuity. IMPRESSION: 1. Stable chest. 2. Mild enlargement of cardiac silhouette and central pulmonary vasculature. Correlate for fluid stat us. Transcribed Date/Time: 02/07/2019 4:40 PM
--- NOTE | 2019-02-07 16:23 | CT ---
CT Brain WO Con: 02/07/2019 4:04 PM CLINICAL HISTORY: Altered mental status. COMPARISON: 11/21/2017 FINDINGS: Hemorrhage: None. Ventricular system: Normal in size and morphology for the patient's age. Cerebral parenchyma: Stable bilateral lacunar infarctions of each thalamus, and superimposed microvas cular ischemic disease in cerebral white matter. Midline shift: None. Mass: No mass effect. Calvarium: Normal. Visualized Paranasal sinuses: Clear. IMPRESSION: No acute intracranial abnormalities. Chronic microvascular ischemic disease.
[2019-02-07 16:35] LABS: ALT (SGPT) 31 U/L (8-55); AST (SGOT) 17 U/L (5-34); Albumin 4.5 g/dL (3.5-5.0); Alkaline Phosphatase 103 U/L (40-150); Anion Gap 22 mmol/L (10-20); BUN (Urea Nitrogen) 9 mg/dL (8.9-20.6); Bilirubin, Total 1.5 mg/dL (0.2-1.2); CK (CPK) 104 U/L (30-200); Calc. Creatinine Clearance 0 mL/min (70-130); Calcium 10.3 mg/dL (7.8-10.44); Carbon Dioxide 18 mmol/L (22-29); Chloride 102 mmol/L (98-107); Estimated GFR-MDRD 70; Globulin 3.2 g/dL (2.4-3.5); Glucose 225 mg/dL (70-105); Potassium 4.1 mmol/L (3.5-5.1); Protein, Total 7.7 g/dL (6.0-8.3); Sodium 138 mmol/L (136-145)
[2019-02-07 16:56] LABS: CKMB 0.9 ng/mL (0-6.6)
[2019-02-07] MEDS ORDERED: Ondansetron PF 4 MG/2 ML Vial ONE (16:59)
[2019-02-07 17:12] LABS: Bilirubin Negative (Negative); Blood, Urine Negative (Negative); Clarity Clear (Clear); Glucose, Urine (Dipstick) 500 mg/dL (Negative); Leukocyte Negative Leu/uL (Negative); Nitrite Negative (Negative); Protein, Urine (Dipstick) Negative (Neg-Trace); Urobilinogen Normal mg/dL (Less than 2)
[2019-02-07 19:28] LABS: Troponin I 0.031 ng/mL (< 0.028)
[2019-02-07] MEDS ORDERED: Ondansetron PF 4 MG/2 ML Vial IVP PRN (20:28)
[2019-02-07] MEDS ORDERED: hydrALAZINE 20 MG/ML VIAL SLOW IVP PRN (20:28)
[2019-02-07] MEDS ORDERED: Bisacodyl 5 MG TAB PO PRN (20:28)
[2019-02-07] MEDS ORDERED: Acetaminophen 325 MG TAB PO PRN (20:28)
--- NOTE | 2019-02-07 21:20 | HP ---
PRIMARY CARE PHYSICIAN: Rosanne Salguero in [place]. CHIEF COMPLAINT: Tunnel vision. HISTORY OF PRESENT ILLNESS: Mr. Lindsay is a pleasant 48-year-old gentleman, who was seen at [facility] on January 08, 2019. He was hospitalized at this facility in October 2017 for hypertensive urgency, seizure, demand ischemia, medication noncompliance, and hypokalemia. The patient reports that he was not started on antiseizure medications at that time. 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 He had chest pain. He was evaluated at [facility] in [place]. He reports that he had some blockages towards the back of his heart. He reports that he received "chemical angioplasty." He has recently been started on insulin. He takes both Levemir and short-acting insulin. He reports that he does not check his blood sugars often. His blood sugar last night was 188. Today morning, he did not check his blood sugar because the battery was not working. He took 20 units of Levemir and 10 units of short-acting insulin. At around 2:00 p.m., he was walking in the house when he felt sweaty and cold. He reports having "tunnel vision" in both eyes. He reports that he felt like passing out, but he fought it. He drank regular Coke. He reports that the episode lasted about 30 to 40 minutes. When EMS arrived, his blood sugar was reportedly in the 200s. The EMS gave him aspirin. He was also slurring his words and drooling. He was brought to this emergency room via [facility]. After reaching here, the patient reportedly vomited twice while being wheeled from the helipad to the emergency room. REVIEW OF SYSTEMS: All other systems were reviewed and found to be negative. PAST MEDICAL HISTORY: Coronary artery disease, hypertension, dyslipidemia, diabetes mellitus type 2, gout, nephrolithiasis, and history of seizures. PAST SURGICAL HISTORY: Lithotripsy. ALLERGIES: NO KNOWN DRUG ALLERGIES. CURRENT MEDICATIONS: 1. [place]-3 one capsule daily. 2. Carvedilol 25 mg two times a day. 3. Amlodipine/atorvastatin 10/40 mg daily. 4. Repaglinide 2 mg daily. 5. Gabapentin 100 mg daily. 6. Allopurinol 100 mg daily. 7. Tramadol p.r.n. SOCIAL HISTORY: The patient denies tobacco use, alcohol use, or recreational drug use. FAMILY HISTORY: Father with diabetes mellitus, hypertension, dyslipidemia, and atrial fibrillation. Mother with myasthenia gravis. PHYSICAL EXAMINATION: GENERAL: On examination, Mr. Lindsay is awake and alert, not in acute distress. He is obese, with a BMI of 35.9. VITAL SIGNS: Blood pressure is 132/86, pulse 66, respiratory rate 20, and oxygen saturation 98% on room air. He is afebrile. EYES: No scleral icterus, no conjunctival pallor. ENT: Moist mucosal membranes. No oropharyngeal erythema or exudates. NECK: Supple, nontender. Trachea is midline. RESPIRATORY: Accessory muscles of breathing are not active. Chest wall movements are symmetric bilaterally. Lungs are clear to auscultation without wheeze, rhonchi, or crepitations. CARDIOVASCULAR: S1 and S2 are heard, regular. Peripheral pulses palpable. No carotid bruit. No pericardial rub. ABDOMEN: Soft, nontender. Bowel sounds are heard. No hepatomegaly, no splenomegaly. NEUROLOGIC: Cranial nerves 2 through 12 are intact. Power is 5/5 in all 4 extremities. There are no focal motor or sensory deficits. Deep tendon reflexes are 2+, plantar reflexes downgoing. Cerebellar exam was unremarkable. MUSCULOSKELETAL: Power is 5/5 in all 4 extremities. SKIN: No rashes or subcutaneous nodules. LYMPHATIC: No cervical lymphadenopathy. PSYCHIATRIC: Normal mood, normal affect. The patient is oriented to person, place, and time. LABORATORY DATA: Mr. Lindsay's labs and investigations were reviewed. I reviewed his electrocardiogram, which shows normal sinus rhythm, no ST changes to suggest an acute coronary syndrome. I also reviewed his chest x-ray, which does not show any pulmonary infiltrates. Noncontrast CT scan of the brain did not show any acute intracranial abnormalities. He has leukocytosis with 13,500 white cells, of which 79% are neutrophils, normal hemoglobin, normal platelet count. Normal sodium, normal potassium, decreased carbon dioxide of 18, elevated anion gap of 22, normal creatinine, elevated total bilirubin of 1.5, otherwise unremarkable LFTs, and indeterminate troponin-I of 0.029. Urinalysis is positive for glucose and ketones. ASSESSMENT AND PLAN: Mr. Lindsay is a pleasant 48-year-old gentleman, who was seen at [facility] on February 07, 2019. His problem list includes: 1. Tunnel vision: Mr. Lindsay is presenting with tunnel vision, slurred speech, and drooling, all these symptoms have resolved. His symptoms are most likely secondary to hypoglycemia. At this point in time, transient ischemic attack cannot be ruled out. He will be admitted to the hospital for further management including 2D echocardiogram, carotid Dopplers, and MRI of the brain. Neurology Service will also be consulted for opinion and help with management. 2. Elevated troponin: The patient denies any chest pain at this time. However, he does have troponins in the indeterminate range. As mentioned, we will check 2D echocardiogram. His farm reporter is Dr. Calvo. We will consult Cardiology Service for opinion and help with management. 3. Diabetes mellitus type 2: We will start Accu-Cheks and insulin sliding scale. We will watch for episodes of hypoglycemia. 4. Dyslipidemia: We will continue him on statin. We will check fasting lipid profile. 5. Abnormal LFTs: He has isolated elevation of total bilirubin. We will recheck LFTs. Many thanks for allowing me to participate in your patient's care. Please feel free to contact me with any questions or concerns. LEVEL OF RISK: High. LEVEL OF COMPLEXITY: High. Job ID: [id number]
[2019-02-07] MEDS ORDERED: traMADol HCl 50 MG TAB PO PRN (21:57)
[2019-02-07] MEDS ORDERED: Gabapentin 100 MG CAP PO SCH (22:15)
[2019-02-07] MEDS ORDERED: Carvedilol 25 MG TAB PO SCH (22:15)
[2019-02-07] MEDS ORDERED: Atorvastatin Calcium 40 MG TAB PO SCH (22:15)
--- NOTE | 2019-02-07 22:20 | ULT ---
BILATERAL CAROTID DUPLEX ULTRASOUND: HISTORY: TIA TECHNIQUE: Grayscale, color-flow and spectral Doppler ultrasound imaging of the extracranial carotid artery syst ems was performed bilaterally. FINDINGS: Mild plaque formation. The peak systolic velocity in the right ICA measures 73 cm/s. The peak systolic velocity in the left ICA measures 53 cm/s. Vertebral flow: antegrade, bilaterally. IMPRESSION: No hemodynamically significant stenosis of Both ICAs.
[2019-02-08 00:27] VITALS: BMI 37.0
[2019-02-08 05:21] LABS: #Eosinphils 0.1 thou/uL (0.0-0.7); #Lymphocytes 2.5 thou/uL (1.20-3.40); #Monocytes 0.8 thou/uL (0.11-0.59); #Neutrophils 7.1 thou/uL (1.40-6.50); %Basophils 0.2 % (0.0-1.0); %Eosinophils 1.1 % (0.0-10.0); %Lymphocytes 23.6 % (21.0-51.0); %Monocytes 7.6 % (0.0-10.0); %Neutrophils 67.5 % (42.0-75.0); Hemoglobin 13.8 g/dL (14.0-18.0); Mean Corpuscular HGB CONC 36.3 g/dL (32.0-36.0); Mean Corpuscular Hemoglobin 33.6 pg (27.0-31.0); Mean Corpuscular Volume 92.8 fL (78.0-98.0); Platelet Count 205 thou/uL (130-400); RBC Distribution Width 12.3 % (11.5-14.5); Red Blood Cell (RBC) Count 4.09 mill/uL (4.70-6.10); White Blood Cell (WBC) Count 10.6 thou/uL (4.8-10.8)
[2019-02-08 05:39] LABS: ALT (SGPT) 28 U/L (8-55); AST (SGOT) 14 U/L (5-34); Albumin 4.1 g/dL (3.5-5.0); Alkaline Phosphatase 92 U/L (40-150); Bilirubin, Direct 0.3 mg/dL (0.1-0.3); Bilirubin, Total 0.9 mg/dL (0.2-1.2); Protein, Total 7.2 g/dL (6.0-8.3)
[2019-02-08 05:41] LABS: Anion Gap 13 mmol/L (10-20); BUN (Urea Nitrogen) 9 mg/dL (8.9-20.6); Calc. Creatinine Clearance 124 mL/min (70-130); Calcium 9.9 mg/dL (7.8-10.44); Carbon Dioxide 27 mmol/L (22-29); Cardiac Risk 6.3 (Less than 4.5); Chloride 102 mmol/L (98-107); Cholesterol 184 mg/dl (< 200 Desired); Estimated GFR-MDRD 72; Glucose 177 mg/dL (70-105); HDL Cholesterol 29 mg/dL (>60 Neg Risk); LDL Cholesterol, Calculated 104 mg/dL; Potassium 3.7 mmol/L (3.5-5.1); Sodium 138 mmol/L (136-145); Triglycerides 257 mg/dL (Less than 150)
[2019-02-08] MEDS ORDERED: Carvedilol 25 MG TAB PO SCH (08:00)
[2019-02-08] MEDS ORDERED: Amlodipine 10 MG TAB PO SCH (09:00)
[2019-02-08] MEDS ORDERED: Lisinopril 20 MG TAB PO SCH (09:00)
[2019-02-08] MEDS ORDERED: Enoxaparin Sodium 40 MG/0.4 ML SYRINGE SC SCH (09:00)
[2019-02-08] MEDS ORDERED: Allopurinol 100 MG TAB PO SCH (09:00)
[2019-02-08] MEDS ORDERED: Clopidogrel Bisulfate 75 MG TAB PO SCH (09:00)
[2019-02-08] MEDS ORDERED: Aspirin 325 mg Enteric Coated Tablet PO SCH (09:00)
[2019-02-08] MEDS: Carvedilol 25 MG TAB PO SCH ×2 (09:30→16:38)
[2019-02-08] MEDS: Gabapentin 100 MG CAP PO SCH ×2 (09:31→16:37)
--- NOTE | 2019-02-08 11:14 | CON ---
DATE OF CONSULTATION: 02/08/2019 CONSULTING PHYSICIAN: Hospitalist Service. IMPRESSION: Basilar transient ischemic attack versus recurrent seizure. PLAN: 1. MRI of the brain. 2. Continue his aspirin and a statin. 3. Consider need for anticonvulsant. HISTORY OF PRESENT ILLNESS: Mr. Lindsay is a 48-year-old man with a past history of hypertension, diabetes, and a seizure that occurred more than a year ago. He was out in the yard when he started to feel oddly. He broke into a cold sweat. He figured that his blood sugar was low and he went in the house to get something to eat. He drank some Coke and ate a hot dog. He went and lied down and was waiting for it to feel better. Unfortunately, the symptoms seem to intensify. He started developing tunnel vision. He became nauseous and vomited. He called for his to get some help. They attempted to check his blood sugar, but their machine was broken. By the time it was checked in flight, it was around 250. His vital signs in flight were also unremarkable. His tunnel vision continued to wax and wane during the flight. He had some recurrent vomiting again. He did not report any lateralized weakness or numbness. His symptoms eventually cleared. He had a CT of the brain done on arrival, which was unremarkable. His carotid ultrasound does not show any stenosis. PAST MEDICAL HISTORY: As listed above. ALLERGIES: NONE REPORTED. SOCIAL HISTORY: No tobacco use. FAMILY HISTORY: Noncontributory. MEDICATIONS: Medication list was reviewed. REVIEW OF SYSTEMS: Ten-system review of systems is otherwise negative. PHYSICAL EXAMINATION: GENERAL: He is a slightly overweight, middle-aged man, in no distress. VITAL SIGNS: Stable. He has been afebrile. HEENT: Pupils are equal and reactive. Conjunctivae are clear. Oropharynx is clear. NECK: Supple. No lymphadenopathy. EXTREMITIES: No cyanosis or edema. NEUROLOGIC: He is alert and appropriate. His speech is fluent and clear. Cranial nerves are intact. Motor exam shows equal strength. There is no fix or drift. Sensation is intact to touch. He can walk independently. SUMMARY: A middle-aged man with a prolonged episode of tunnel vision, nausea, vomiting, diaphoresis, which could be consistent with a basilar ischemic event. He had a seizure over a year ago and apparently may have had a recurrent seizure with this episode. It is possible this could have been an odd prodromal aura to a seizure. We will see how his MRI turns out. Job ID: [id number]
--- NOTE | 2019-02-08 11:59 | MRI ---
MRI Brain WO Con: 02/08/2019 8:31 PM CLINICAL HISTORY: History of stroke and hypoglycemia. TECHNIQUE: Multiplanar, multisequence images were obtained of the brain. COMPARISON: MR the brain dated November 22, 2017 FINDINGS: Extra axial spaces: Normal in size and morphology for the patient's age. Hemorrhage: None. Ventricular system: Normal in size and morphology for the patient's age. Basal cisterns: Normal. Cerebral parenchyma: Stable chronic small vessel white matter ischemic change. Midline shift: None. Cerebellum: Normal. Brainstem: Normal. OTHER: Calvarium: Normal. Vascular system: Normal. Visualized Paranasal sinuses: Small mucus retention cyst is present within the left maxillary sinus. There is mild mucosal thickening within the ethmoid air cells.. Visualized Orbits: Normal. Visualized upper cervical spine: Normal. Sella and skull base: Normal. IMPRESSION: No acute intracranial abnormality
[2019-02-08 16:47] VITALS: BP 122/76; TEMP 97.8
[2019-02-08] MEDS ORDERED: levETIRAcetam 500 MG TAB PO SCH ×2 (17:00→21:00)
[2019-02-08] MEDS ORDERED: Atorvastatin Calcium 40 MG TAB PO SCH ×2 (21:00)
--- NOTE | 2019-02-08 21:42 | DIS ---
DATE OF ADMISSION: 02/07/2019 DATE OF DISCHARGE: 02/08/2019 PRIMARY CARE PROVIDER: Rosanne Salguero. DISCHARGE DIAGNOSES: 1. Tunnel vision. 2. Tunnel vision, most likely secondary to recurrent seizures. 3. Basilar transient ischemic attack, suspected. CONDITION OF PATIENT ON THE DAY OF DISCHARGE: Stable. I assessed Mr. Lindsay on the day of discharge. He denies any chest pain or shortness of breath. He denies any neurologic symptoms. Vital signs are stable. S1 and S2 are heard, regular. Lungs are clear to auscultation bilaterally. DISCHARGE MEDICATIONS: 1. Allopurinol 100 mg daily. 2. Amlodipine 10 mg daily. 3. Vitamin C 2 tablets 500 mg daily. 4. Aspirin 81 mg daily. 5. Lipitor 80 mg at bedtime. 6. Coreg 25 mg 2 times a day. 7. Plavix 75 mg daily. 8. Gabapentin 100 mg three times a day. 9. Glimepiride 2 mg in the morning. 10. Levemir 10 units subcutaneously two times a day. 11. Lisinopril 40 mg daily. 12. Lycopene 10 mg daily. 13. [place]-3 soft gel one capsule daily. 14. Repaglinide 2 mg 3 times a day. 15. Keppra 500 mg 2 times a day. 16. Tramadol p.r.n. CONSULTATIONS DURING THIS HOSPITALIZATION: Neurology, Dr. De Guzman. HOSPITAL COURSE: Mr. Lindsay is a pleasant 48-year-old gentleman, who was admitted to [facility] on February 07, 2019, for tunnel vision. Please refer to my his history and physical note dated February 07, 2019, for further details. His symptoms resolved following admission. He did not have any episodes of hypoglycemia. He has been advised to check his blood sugars three times a day and show the readings to his primary care provider. He was seen by Neurology Service, who felt that his symptoms were most likely secondary to basilar TIA versus recurrent seizure. MRI of the brain did not show any acute intracranial abnormality. Carotid Dopplers did not show any evidence of hemodynamically significant stenosis. 2D echocardiogram showed left ventricular ejection fraction of 55% to 60%, and E/A flow reversal suggestive of diastolic dysfunction. He did not have any chest pain. His troponin I was in the indeterminate range, but was always elevated in the past. His long-acting insulin was on hold during the hospitalization. At the time of discharge, I am starting it at a decreased dose of 10 units 2 times a day. He will need to follow up with his primary care provider for adjustment of his diabetes medication dosing. On the day of discharge, Mr. Lindsay has normal electrolytes and normal creatinine. He had abnormal fasting lipid profile with elevated triglycerides of 257, cholesterol 184, LDL cholesterol 104, and HDL cholesterol 29. He will follow up with his primary care provider for management of dyslipidemia. Many thanks for allowing me to participate in your patient's care. Please feel free to contact me with any questions or concerns. DISCHARGE DESTINATION: Home. FOLLOWUP APPOINTMENTS: Pt to follow up with his primary care provider and neurologist. Job ID: [id number] MATT
== END 2019-02-08 18:45 | disposition home or self-care (01) ==
LOC: ERS 15:33 → 2SW 19:51
PROVIDERS: ADMIT Internal Medicine; ATTEND Internal Medicine
DX: H53.8 Other visual disturbances (principal); E11.9 Type 2 diabetes mellitus without complications; I10 Essential (primary) hypertension; E78.5 Hyperlipidemia, unspecified; I25.10 Atherosclerotic heart disease of native coronary artery without angina pectoris; M10.9 Gout, unspecified; E66.9 Obesity, unspecified; R94.5 Abnormal results of liver function studies; R79.89 Other specified abnormal findings of blood chemistry; Z86.69 Personal history of other diseases of the nervous system and sense organs; Z68.37 Body mass index [BMI] 37.0-37.9, adult; Z79.4 Long term (current) use of insulin; Z79.82 Long term (current) use of aspirin; Z79.02 Long term (current) use of antithrombotics/antiplatelets; Z79.899 Other long term (current) drug therapy
CPT/HCPCS: 36415; 36416; 70450; 70551; 71045; 80048; 80053; 80061; 80076; 81003; 82550; 82553; 84484; 85025; 93005; 93306; 93880; 96360; 96372; G0378; J1650; J2405